=== PATIENT | male | born 1990 | race African-American/Black ===

== ENCOUNTER 2016-12-25 12:56 | Emergency (ER) | payer OTHER ==
[~2016-12-25] VITALS: Ht 185.4 cm; Wt 66.7 kg
[~2016-12-25 12:56] MED LIST: CHLO15MO2 MM; HYDR-971 PO
[2016-12-25 13:00] VITALS: BP 162/95
[2016-12-25] MEDS ORDERED: SULF1TAB24 PO (13:29)
[2016-12-25] MEDS ORDERED: TRAM-29 PO (13:29)
--- NOTE | 2016-12-25 13:29 | PHYS DOC ---
Past Medical History Past Medical History: No Pertinent History Past Surgical History: Appendectomy Alcohol Use: None Drug Use: None Adult General Chief Complaint Chief Complaint: FINGER INJURY HPI HPI Patient is a 26 year old male with no significant medical history who presents today with right middle finger pain and swelling. Patient states 2 weeks ago he sustained a puncture wound on the right middle finger. He states he was trying to reach into his tool box when his right middle finger went to into a nail, he states he removed the nail right away. He states the finger has gotten increasingly painful and swollen since then. Patient denies any drainage from the finger. Patient appears very intoxicated on alcohol, he is slurring his speech. Review of Systems Review of Systems Constitutional: Denies fever or chills [] Eyes: Denies change in visual acuity, redness, or eye pain [] Musculoskeletal: Denies back pain or joint pain [] Integument: Right middle finger pain and swelling Neurologic: Denies headache, focal weakness or sensory changes [] Endocrine: Denies polyuria or polydipsia [] Allergies Allergies Allergies Coded Allergies Type Severity Reaction Last Updated Verified No Known Drug Allergies 07/24/13 No Physical Exam Physical Exam Constitutional: Well developed, well nourished, no acute distress, non-toxic appearance. [] HENT: Normocephalic, atraumatic, bilateral external ears normal, oropharynx moist, no oral exudates, nose normal. [] Eyes: PERRLA, EOMI, conjunctiva normal, no discharge. [] Skin: Right middle finger has diffuse mild swelling, the finger is warm and very tender to palpate but no fluctuance. The dorsal part of the finger appears erythematous. Neurovascular intact to the finger. Back: No tenderness, no CVA tenderness. [] Extremities: No tenderness, no cyanosis, no clubbing, ROM intact, no edema. [] Neurologic: Alert and oriented X 3, normal motor function, normal sensory function, no focal deficits noted. [] Psychologic: Affect normal, judgement normal, mood normal. [] EKG EKG [] Radiology/Procedures Radiology/Procedures [] Course & Med Decision Making Course & Med Decision Making Pertinent Labs and Imaging studies reviewed. (See chart for details) Patient has right middle finger infection from a puncture wound 2 weeks ago. He appears very intoxicated from alcohol. He was given tetanus in the ED. Discharged with Bactrim. Discharged with Ultram for pain. Instructed to soak the finger in warm Epsom salt water twice a day. Instructed to return to the ED if symptoms worsen. Follow-up with his own doctor in 1-2 weeks. Isabella Disclaimer Isabella Disclaimer This electronic medical record was generated, in whole or in part, using a voice recognition dictation system. Departure Departure Impression: Primary Impression: Finger infection Additional Impression: Puncture wound of finger Disposition: HOME, SELF-CARE Condition: STABLE Referrals: IRA ACEVES (PCP) Follow-up with your own doctor in one week Patient Instructions: Puncture Wound, [id number], Skin Infections Additional Instructions: You were seen for right middle finger infection from a puncture wound. We put you on antibiotics. You must complete them. Follow-up with your own doctor in 1- 2 weeks. You were given tetanus shot in the emergency room today. Soak the finger in warm Epsom salted water twice a day. Scripts Tramadol Hcl (ULTRAM) 50 Mg Tablet 1 TAB PO Q6HRS, #30 TAB Prov: GIAN LOWE APRN 12/25/16 Sulfamethoxazole/Trimethoprim (BACTRIM DS TABLET) 1 Each Tablet 1 TAB PO BID, #20 TAB Prov: GIAN LOWE APRN 12/25/16 Problem Qualifiers Additional Impression: Puncture wound of finger Encounter type: initial encounter Qualified Codes: S61.239A - Puncture wound without foreign body of unspecified finger without damage to nail, initial encounter GIAN LOWE APRN December 25, 2016 13:29
[2016-12-25] MEDS ORDERED: DIPHTH,PERTUSS(ACELL),TET TOX 0.5 ML DISP.SYRIN. VAX IM ONE (13:30)
== END 2016-12-25 13:34 | disposition home or self-care (01) ==
LOC: ER 12:56
DX: S61.232A Puncture wound without foreign body of right middle finger without damage to nail, initial encounter (principal); L08.9 Local infection of the skin and subcutaneous tissue, unspecified; F10.129 Alcohol abuse with intoxication, unspecified; W45.0XXA Nail entering through skin, initial encounter; Y93.89 Activity, other specified; Y92.89 Other specified places as the place of occurrence of the external cause; Y99.8 Other external cause status
CPT/HCPCS: 90471; 90715; 99283-25

== ENCOUNTER 2019-03-27 01:30 | Emergency (ER) | payer SELFPAY ==
[~2019-03-27] VITALS: Ht 182.9 cm; Wt 67.1 kg
[~2019-03-27 01:30] MED LIST changes: +HYDR-3164 PO; -HYDR-971 PO; +SULF1TAB24 PO; +TRAM-48 PO
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
[2019-03-27] MEDS ORDERED: IV NORMAL SALINE 1000ML BAG 1,000 ML IV ONE (02:00)
[2019-03-27 02:08] LABS: BASO % 0 % (0-3); EOS % 0 % (0-3); HEMATOCRIT 35.2 % (39.0-53.0); HEMOGLOBIN 11.8 g/dL (13.0-17.5); LYMPH # 1.5 x10^3/uL (1.0-4.8); LYMPH % 15 % (24-48); MEAN CORPUSCULAR HEMOGLOBIN 29 pg (25-35); MEAN CORPUSCULAR HGB CONC 34 g/dL (31-37); MEAN CORPUSCULAR VOLUME 88 fL (79-100); MONO # 0.6 x10^3/uL (0.0-1.1); MONO % 6 % (0-9); NEUT # 7.9 x10^3/uL (1.8-7.7); NEUT % 78 % (31-73); PLATELET COUNT 208 x10^3/uL (140-400); RED BLOOD COUNT 4.01 x10^6/uL (4.30-5.70); RED CELL DISTRIBUTION WIDTH 13.2 % (11.5-14.5); WHITE BLOOD COUNT 10.1 x10^3/uL (4.0-11.0)
[2019-03-27 02:09] VITALS: BP 148/88
--- NOTE | 2019-03-27 02:14 | RAD ---
INDICATION: Altered mental status COMPARISON: None. TECHNIQUE: Axial CT images obtained through the head without intravenous contrast. One or more of the following individualized dose reduction techniques were utilized for this examination: 1. Automated exposure control; 2. Adjustment of the mA and/or kV according to patient size; 3. Use of iterative reconstruction technique. FINDINGS: No intracranial hemorrhage. No midline shift. Basal cisterns patent. Ventricles and sulci are unremarkable. No acute osseous abnormality. Orbits and paranasal sinuses unremarkable. IMPRESSION: 1. No acute intracranial hemorrhage. Electronically signed by: Zander Alberts MD (03/27/2019 2:11 AM) [id number]
[2019-03-27 02:18] LABS: CALCIUM 9.3 mg/dL (8.5-10.1); GFR 107.7; POTASSIUM 3.3 mmol/L (3.5-5.1)
[2019-03-27 02:24] LABS: ALBUMIN 3.4 g/dL (3.4-5.0); ALBUMIN/GLOBULIN RATIO 0.9 (1.0-1.7); TOTAL BILIRUBIN 0.2 mg/dL (0.2-1.0); TOTAL PROTEIN 7.1 g/dL (6.4-8.2)
== END 2019-03-27 03:00 | disposition home or self-care (01) ==
LOC: ER 01:30
DX: S01.511A Laceration without foreign body of lip, initial encounter (principal); S50.10XA Contusion of unspecified forearm, initial encounter; F12.10 Cannabis abuse, uncomplicated; R41.82 Altered mental status, unspecified; Y04.0XXA Assault by unarmed brawl or fight, initial encounter; Y93.89 Activity, other specified; Y92.89 Other specified places as the place of occurrence of the external cause; Y99.8 Other external cause status
CPT/HCPCS: 36415; 70450; 80053; 85025; 96361; 96374; 99285; G0480; J2060; J7030